=== PATIENT | male | born 1945 | race Caucasian/White ===

== ENCOUNTER 2023-05-28 15:40 | Outpatient (AMB) | payer MEDICARE, OTHER, SELFPAY ==
--- NOTE | 2023-05-28 15:35 | MHC.OFFWIV ---
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 He reports that he recently returned from [place] and on a cruise. Was not wearing his mask both stuff that time. He states that the coughing started yesterday there is some associated shortness of breath. He is concerned that it is triggering his asthma. He has tried to use his albuterol inhaler but is not sure how often to use it. Denies fever chills nausea vomiting chest pain. Review of Systems Card Denies rapid heart rate, Denies dyspnea and Denies dyspnea on exertion Resp Denies dyspnea and Denies dyspnea on exertion GI Denies dyspepsia and Denies heartburn Musc Denies arthralgias and Denies muscle cramps Neuro Denies focal weakness and Denies Other visual disturbances Physical Exam Vital Signs: Last Vital Signs Temp 96.7 F L 05/28/23 15:44 Pulse 68 05/28/23 15:44 BP 110/68 05/28/23 15:44 Pulse Ox 96 05/28/23 15:44 Oxygen Delivery Method Room Air 05/28/23 15:44 BMI result Body Mass Index 45.1 Const General: healthy appearing and no acute distress HEENT Mouth: Normal oral and palatal mucosa present Resp Effort & Inspection: normal respiratory effort and able to speak in complete sentences Auscultation: clear to auscultation bilaterally Cardio Rate: regular rate Rhythm: regular rhythm Assessment & Plan Assessment & Plan (1) URI (upper respiratory infection): Code(s): J06.9 - Acute upper respiratory infection, unspecified Plan Patient speaking in clear full sentences well appearing no acute distress. We discussed at length pros and cons of starting prednisone in conjunction with his albuterol that he has at home. He would like to wait couple of days before initiating course of prednisone and see if his symptoms improve with supportive care, albuterol and Tessalon Perles alone. I think this is reasonable. Since I am unable to print a script and handed to him for later use will have to send both prescriptions to pharmacy. Discussed this with patient. 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 Recommend return to clinic if symptoms are worsening Medications: New benzonatate 100 mg PO TID 5 days PRN 20 caps 0RF cough prednisone Take 4 tabs p.o. daily x 5 days 10 mg PO DAILY 20 tabs 0RF J06.9 - Acute upper respiratory infection, unspecified Coding Level of Care Code Est Pt Level 3 (20252) Diagnoses URI (upper respiratory infection) J06.9
[2023-05-28 15:44] VITALS: BP 110/68; PULSE 68; TEMP 35.9; O2SAT 96; BMI 45.1
== END 2023-05-28 16:04 | disposition home or self-care (01) ==
PROVIDERS: Visit Provider Emergency Medicine
DX: J06.9 Acute upper respiratory infection, unspecified (principal)
CPT/HCPCS: 99213

== ENCOUNTER 2023-10-17 07:32 | Outpatient (AMB) | payer MEDICARE, OTHER, SELFPAY ==
--- NOTE | 2023-10-17 07:42 | A.OFFPC_ITS ---
Vital Signs 10/17/23 07:43 Height 5 ft 5 in Weight 270 lb BMI 44.9 BP 130/64 Blood Pressure Location Lt brachial Position Sitting Pulse 64 Pulse Source Pulse Oximeter Pulse Oximetry (%) 95 Oxygen Delivery Method Room Air Intake Visit Reasons: NPV/ requesting phy Allergies aspirin Adverse Reaction (Verified 10/17/23 07:46) bleeding Penicillins Adverse Reaction (Verified 10/17/23 07:46) hives plavix Adverse Reaction (Uncoded 10/17/23 07:46) rash Medication List - Last Reconciled 10/17/23 by Layla Yu MD atorvastatin 40 mg PO DAILY mqmontkapwc-rpgsvrbvc-ycbzgqrr 200-62.5-25 mcg (Trelegy Ellipta) 1 ea inhalation DAILY lisinopril 2.5 mg PO DAILY montelukast 10 mg PO DAILY nadolol 20 mg PO DAILY omeprazole 20 mg PO DAILY Tobacco use date assessed: 10/17/23 Fall risk assessment: No Falls in past year Last assessed Fall Risk: 10/17/23 Dental Screening Dental Screen Date: 10/17/23 Did you have a dental visit in the last 12 months?: Yes Did you have a dental problem in the last 6 months where you did not have access to dental care?: No Was dental information given to patient?: Patient has dentist HPI NPV/ requesting phy HPI Details 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 PMH includes CAD, asthma, hyperlipid, stable on meds. 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 1. Little interest or pleasure in doing things: not at all 2. Feeling down, depressed, or hopeless: not at all 3. Trouble falling or staying asleep, or sleeping too much: not at all 4. Feeling tired or having little energy: not at all 5. Poor appetite or overeating: not at all 6. Feeling bad about yourself - or that you are a failure or have let yourself or your family down: not at all 7. Trouble concentrating on things, such as reading the newspaper or watching television: not at all 8. Moving or speaking so slowly that other people could have noticed. Or the opposite - being so fidgety or restless that you have been moving around a lot more than usual: not at all 9. Thoughts that you would be better off or of hurting yourself in some way: not at all Total score: 0 Depression Screening Interpretation: Negative Depression Screening Done: Yes Source: Developed by Drs. Kenyon Hebert, Stephanie Junior, Jeff Martínez and colleagues, with an educational jacobo from [employer]. Thrive Questionnaire Date Thrive assessed: 10/17/23 I am a: Patient What is your living situation today?: I have a steady place to live Within the past 12 months, did the food you bought not last and you didn't have the money to get more?: Never true Within the past 12 months, did you worry whether your food would run out before you got money to buy more?: Never true Do you have trouble paying for medicines?: No Do you have trouble getting transportation to medical appointments?: No Do you have trouble paying your heating and electricity bill?: No Do you have trouble taking care of your child, family member or friend?: No Do you have trouble with day-to-day activities such as bathing, preparing meals, shopping, managing finances, etc.?: No Are you currently unemployed and looking for a job?: No Are you interested in more education?: No Please select the resources that you would like help with: None THRIVE Score: 0 AUDIT C Alcohol Use Questionnaire (AUDIT-C) 1. How often do you have a drink containing alcohol?: Monthly or less 2. How many drinks containing alcohol do you have on a typical day when you are drinking?: 1 or 2 3. How often do you have six or more drinks on one occasion?: Never Total Score: 1 MIKE-7 AMB Questionnaire MIKE-7 Date MIKE - 7 assessed: 10/17/23 Feeling nervous, anxious, or on edge: 0 = Not at all Not being able to stop or control worryin = Not at all Worrying too much about different things: 0 = Not at all Trouble relaxin = Not at all Being so restless that it is hard to sit still: 0 = Not at all Becoming easily annoyed or irritable: 0 = Not at all Feeling afraid as if something awful might happen: 0 = Not at all Total MIKE-7 score (0-4 normal; 5-9 mild; 10-14 moderate; 15-21 severe): 0 Source: Developed by Drs. Kenyon Hebert, Stephanie Junior, Jeff Martínez and colleagues, with an educational jacobo from [employer]. Review of Systems Const All systems reviewed & are unremarkable except as noted in HPI and below Reports no additional complaints Eyes Reports no additional complaints ENT Reports no additional complaints Card Reports no additional complaints Resp Reports no additional complaints GI Reports no additional complaints Physical exam (Primary Care) Vital Signs: Last Vital Signs Pulse 64 10/17/23 07:43 BP 130/64 10/17/23 07:43 Pulse Ox 95 10/17/23 07:43 Oxygen Delivery Method Room Air 10/17/23 07:43 BMI result Body Mass Index 44.9 Tobacco/Smoking Status: Tobacco use Status Tobacco use date assessed 10/17/23 10/17/23 07:52 e-Cigarette/Vaping Use Never Used 10/17/23 08:17 PHQ-9: PHQ-9 Score PHQ-9: Total score 0 10/17/23 12:10 Depression Screening Interpretation: Negative Thrive Assessment: Date of Thrive Assessment Date Thrive assessed 10/17/23 10/17/23 08:50 Const General: no acute distress HENMT Head: Yes normal to inspection Ears: hearing grossly normal bilaterally General nose exam: Normal external nose present Throat: Yes posterior oropharynx normal Eyes General: appearance normal, both eyes and all related structures Neck Neck: Yes no lymphadenopathy and Yes supple Resp Effort & Inspection: normal respiratory effort Auscultation: clear to auscultation bilaterally Cardio Rhythm: regular rhythm Heart sounds: S1 normal heart sound present and S2 normal heart sound present GI Inspection: Yes normal to inspection Palpation (GI): Soft to palpation Percussion: Yes normal to percussion Auscultation: normal bowel sounds Assessment and Plan Assessment & Plan (1) CAD (coronary artery disease): Comment: 2009 DEV to 90% LAD, Dr. 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 08/2023 Code(s): J45.909 - Unspecified asthma, uncomplicated Plan: Patient has been on Trelegy and montelukast and follows up with physical metallurgist (3) Hyperlipidemia: Code(s): E78.5 - Hyperlipidemia, unspecified Plan: Continue atorvastatin (4) Obesity: Code(s): E66.9 - Obesity, unspecified Plan: Increase physical activity decrease caloric intake and weight loss discussed with the patient, follow-up in 3 months with a fasting labs before (5) Status post right hip replacement: Code(s): Z96.641 - Presence of right artificial hip joint (6) S/P knee replacement: Comment: Left 2012, R 2020, Dr. Hamilton Code(s): Z96.659 - Presence of unspecified artificial knee joint (7) Hx of colonoscopy: Comment: 2021 for rectal bleeding , hemorrhoid, Dr. MELTON Code(s): Z98.890 - Other specified postprocedural states (8) NGUYỄN (obstructive sleep apnea): Comment: on cpap Code(s): G47.33 - Obstructive sleep apnea (adult) (pediatric) Orders: Orders Complete Blood Count Auto Diff Today E66.9 - Obesity, unspecified, E78.5 - Hyperlipidemia, unspecified, I25.10 - Atherosclerotic heart disease of [place] coronary artery without angina pectoris, J45.909 - Unspecified asthma, uncomplicated PSA,Total (Free>4and<10) Today E66.9 - Obesity, unspecified, E78.5 - Hyperlipidemia, unspecified, I25.10 - Atherosclerotic heart disease of [place] coronary artery without angina pectoris, J45.909 - Unspecified asthma, uncomplicated UA w Microscopic Today E66.9 - Obesity, unspecified, E78.5 - Hyperlipidemia, unspecified, I25.10 - Atherosclerotic heart disease of [place] coronary artery without angina pectoris, J45.909 - Unspecified asthma, uncomplicated Comprehensive [employer]. Panel Fast Today E66.9 - Obesity, unspecified, E78.5 - H yperlipidemia, unspecified, I25.10 - Atherosclerotic heart disease of [place] coronary artery without angina pectoris, J45.909 - Unspecified asthma, uncomplicated Lipid Panel Today E66.9 - Obesity, unspecified, E78.5 - Hyperlipidemia, unspecified, I25.10 - Atherosclerotic heart disease of [place] coronary artery without angina pectoris, J45.909 - Unspecified asthma, uncomplicated Coding Level of Care Code New Pt Prev Care >65yr (57867) Diagnoses CAD (coronary artery disease) I25.10 Asthma J45.909 Hyperlipidemia E78.5 Obesity E66.9 Status post right hip replacement Z96.641 S/P knee replacement Z96.659 Hx of colonoscopy Z98.890 NGUYỄN (obstructive sleep apnea) G47.33
[2023-10-17 07:43] VITALS: BP 130/64; PULSE 64; O2SAT 95; BMI 44.9
== END 2023-10-17 15:25 | disposition home or self-care (01) ==
PROVIDERS: Visit Provider Internal Medicine
DX: Z00.00 Encounter for general adult medical examination without abnormal findings (principal); I25.10 Atherosclerotic heart disease of native coronary artery without angina pectoris; Z68.41 Body mass index [BMI] 40.0-44.9, adult; E66.9 Obesity, unspecified; J45.909 Unspecified asthma, uncomplicated; E78.5 Hyperlipidemia, unspecified; Z96.641 Presence of right artificial hip joint; Z96.659 Presence of unspecified artificial knee joint; Z98.890 Other specified postprocedural states; G47.33 Obstructive sleep apnea (adult) (pediatric)
CPT/HCPCS: 99397

== ENCOUNTER 2023-10-18 08:22 | Outpatient (REF) | payer MEDICARE, OTHER, SELFPAY ==
[2023-10-18 10:20] LABS: MANUAL DIFF FLAG NO
[2023-10-18 10:37] LABS: Alanine Aminotransferase 16 U/L (0-40); Alkaline Phosphatase 101 U/L (39-117); Anion Gap 10 (12-20); Aspartate Amino Transferase 17 U/L (5-37); Bilirubin Total 0.7 mg/dL (0.0-1.0); Blood Urea Nitrogen 22 mg/dL (9-16); Calcium 9.5 mg/dL (8.4-10.2); Carbon Dioxide 31 mmol/L (22-29); Chloride 108 mmol/L (96-108); Cholesterol 122 mg/dL (<200); Estimated Glomerular Filt Rate > 60; Glucose Fasting 105 mg/dL (60-99); HDL Cholesterol 42 mg/dL (>40); LDL Cholesterol Calculated 67 mg/dL (<100); Sodium 144 mmol/L (135-145); Total Protein 6.7 g/dL (6.5-8.0); Triglycerides 68 mg/dL (<150)
[2023-10-18 10:38] LABS: Appearance Urine Clear; Color Urine Yellow; Glucose Urine UA Negative (Negative); Leukocyte Esterase Urine Negative (Negative); Nitrite Urine Negative (Negative); PH 5.5 (5.0-9.0); Specific Gravity - Urine 1.025 (1.005-1.025); Urine Blood Negative (Negative); Urine Ketones Negative (Negative); Urine Protein Negative (Neg-Trace)
[2023-10-18 10:38] LABS: Eosinophils Absolute Auto 0.1 X10*3/uL (0.0-0.4); Hemoglobin 13.9 g/dl (14.0-18.0); Monocytes Absolute Auto 0.7 X10*3/uL (0.1-1.2); Red Cell Distribution Width 14.3 % (11.0-16.0)
[2023-10-18 10:56] LABS: PSA,Total (Free>4and<10) 0.45 ng/mL (0.00-4.00)
[2023-10-18 11:00] LABS: Bacteria Urine None Seen (None Seen); Hyaline Casts Urine 0-2 /LPF (0-2); RBC Urine 0-2 /HPF (0-2); Squamous Epithelial Cell Urine 0-2 /HPF (0-2); WBC Urine 0-5 /HPF (0-5)
[2023-10-18 11:32] LABS: Basophils Percent Auto 0.5 % (0-2); Eosinophils Percent Auto 1.8 % (0-4); Hematocrit 43.2 % (42.0-52.0); Imm Gran Abs Auto 0.05 X10*3/uL (0.00-0.03); Imm Gran Pct Auto 0.7 % (0.0-0.4); Lymphocytes Absolute Auto 1.4 X10*3/uL (1.2-4.9); Lymphocytes Percent Auto 18.8 % (20-40); Mean Corpuscular HGB Conc 32.2 g/dl (31.0-36.0); Mean Corpuscular Hemoglobin 29.2 pg (27.0-33.0); Mean Corpuscular Volume 90.8 fL (80.0-98.0); Mean Platelet Volume 12.5 fL (9.4-12.4); Monocytes Percent Auto 8.8 % (2-11); Neutrophils Absolute Auto 5.1 x10*3/uL (2.0-8.3); Neutrophils Percent Auto 69.4 % (45-73); Red Blood Count 4.76 X10*6/uL (4.60-5.80); White Blood Count 7.4 X10*3/uL (4.8-10.8)
[2023-10-18 11:34] LABS: Platelet Count 140 X10*3/uL (160-400)
== END 2023-10-18 08:23 | disposition home or self-care (01) ==
LOC: HO.HMGCLDS 08:22
PROVIDERS: PCP Internal Medicine; Visit Provider Internal Medicine
DX: Z12.5 Encounter for screening for malignant neoplasm of prostate (principal); I25.10 Atherosclerotic heart disease of native coronary artery without angina pectoris; E78.5 Hyperlipidemia, unspecified; J45.909 Unspecified asthma, uncomplicated; E66.9 Obesity, unspecified
CPT/HCPCS: 36415; 80053; 80061; 81001; 84153; 85025

== ENCOUNTER 2024-01-18 10:04 | Outpatient (AMB) | payer MEDICARE, OTHER, SELFPAY ==
[2024-01-18 10:19] VITALS: BP 120/66; PULSE 63; O2SAT 95; BMI 45.6
--- NOTE | 2024-01-18 10:19 | A.OFFPC_ITS ---
Vital Signs 01/18/24 10:19 Height 5 ft 5 in Weight 274 lb BMI 45.6 BP 120/66 Blood Pressure Location Lt brachial Position Sitting Pulse 63 Pulse Source Pulse Oximeter Pulse Oximetry (%) 95 Oxygen Delivery Method Room Air Intake Visit Reasons: 3 month follow up Intake Note: Pt is here today for 3 months follow up visit. Allergies aspirin Adverse Reaction (Verified 01/18/24 10:20) bleeding Penicillins Adverse Reaction (Verified 01/18/24 10:20) hives plavix Adverse Reaction (Uncoded 01/18/24 10:20) rash Medication List - Last Reconciled 01/18/24 by Layla Yu MD atorvastatin 40 mg PO DAILY aglbaapaalp-rxyxpvdtm-cxnukeur 200-62.5-25 mcg (Trelegy Ellipta) 1 ea inhalation DAILY lisinopril 2.5 mg PO DAILY montelukast 10 mg PO DAILY nadolol 20 mg PO DAILY omeprazole 20 mg PO DAILY Tobacco use date assessed: 01/18/24 Fall risk assessment: 1 Fall in past year Last assessed Fall Risk: 01/18/24 Dental Screening Dental Screen Date: 01/18/24 Did you have a dental visit in the last 12 months?: Yes Did you have a dental problem in the last 6 months where you did not have access to dental care?: No Was dental information given to patient?: Patient has dentist HPI 3 month follow up HPI Details Pt presents for HTN, asthma, GERD, stable on meds. 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 1. Little interest or pleasure in doing things: not at all 2. Feeling down, depressed, or hopeless: not at all 3. Trouble falling or staying asleep, or sleeping too much: not at all 4. Feeling tired or having little energy: not at all 5. Poor appetite or overeating: not at all 6. Feeling bad about yourself - or that you are a failure or have let yourself or your family down: not at all 7. Trouble concentrating on things, such as reading the newspaper or watching television: not at all 8. Moving or speaking so slowly that other people could have noticed. Or the opposite - being so fidgety or restless that you have been moving around a lot more than usual: not at all 9. Thoughts that you would be better off or of hurting yourself in some way: not at all Total score: 0 Depression Screening Interpretation: Negative Depression Screening Done: Yes Source: Developed by Drs. Kenyon Hebert, Stephanie Junior, Jeff Martínez and colleagues, with an educational jacobo from [employer]. Thrive Questionnaire Date Thrive assessed: 01/18/24 I am a: Patient What is your living situation today?: I have a steady place to live Within the past 12 months, did the food you bought not last and you didn't have the money to get more?: Never true Within the past 12 months, did you worry whether your food would run out before you got money to buy more?: Never true Do you have trouble paying for medicines?: No Do you have trouble getting transportation to medical appointments?: No Do you have trouble paying your heating and electricity bill?: No Do you have trouble taking care of your child, family member or friend?: No Do you have trouble with day-to-day activities such as bathing, preparing meals, shopping, managing finances, etc.?: No Are you currently unemployed and looking for a job?: No Are you interested in more education?: Yes Please select the resources that you would like help with: Housing/Longterm Currently or been in a relationship where the following occur: No concerns reported THRIVE Score: 0 AUDIT C Alcohol Use Questionnaire (AUDIT-C) 1. How often do you have a drink containing alcohol?: 2-4 times a month 2. How many drinks containing alcohol do you have on a typical day when you are drinking?: 1 or 2 3. How often do you have six or more drinks on one occasion?: Never Total Score: 2 MIKE-7 AMB Questionnaire MIKE-7 Date MIKE - 7 assessed: 01/18/24 Feeling nervous, anxious, or on edge: 0 = Not at all Not being able to stop or control worryin = Not at all Worrying too much about different things: 0 = Not at all Trouble relaxin = Not at all Being so restless that it is hard to sit still: 0 = Not at all Becoming easily annoyed or irritable: 0 = Not at all Feeling afraid as if something awful might happen: 0 = Not at all Total MIKE-7 score (0-4 normal; 5-9 mild; 10-14 moderate; 15-21 severe): 0 Source: Developed by Drs. Kenyon Hebert, Stephanie Junior, Jeff Martínez and colleagues, with an educational jacobo from [employer]. Review of Systems Const All systems reviewed & are unremarkable except as noted in HPI and below Reports no additional complaints Eyes Reports no additional complaints ENT Reports no additional complaints Card Reports no additional complaints Resp Reports no additional complaints GI Reports no additional complaints Reports no additional complaints Physical exam (Primary Care) Vital Signs: Last Vital Signs Pulse 63 01/18/24 10:19 BP 120/66 01/18/24 10:19 Pulse Ox 95 01/18/24 10:19 Oxygen Delivery Method Room Air 01/18/24 10:19 BMI result Body Mass Index 45.6 Tobacco/Smoking Status: Tobacco use Status Tobacco use date assessed 01/18/24 01/18/24 10:20 Patient Tobacco Use Status Never used Tobacco 01/18/24 10:31 e-Cigarette/Vaping Use Never Used 01/18/24 10:19 PHQ-9: PHQ-9 Score PHQ-9: Total score 0 01/18/24 10:20 Depression Screening Interpretation: Negative Thrive Assessment: Date of Thrive Assessment Date Thrive assessed 01/18/24 01/18/24 10:20 Currently or been in a relationship where the following occur: No concerns reported Const General: no acute distress HENMT Head: Yes normal to inspection Face and sinus: Yes normal facial exam Throat: Yes posterior oropharynx normal Eyes General: appearance normal, both eyes and all related structures Neck Neck: Yes supple Resp Effort & Inspection: normal respiratory effort Auscultation: clear to auscultation bilaterally Cardio Rhythm: regular rhythm Heart sounds: S1 normal heart sound present and S2 normal heart sound present GI Inspection: Yes normal to inspection Palpation (GI): Soft to palpation Percussion: Yes normal to percussion Auscultation: normal bowel sounds Assessment and Plan Assessment & Plan (1) NGUYỄN (obstructive sleep apnea): Comment: on cpap Code(s): G47.33 - Obstructive sleep apnea (adult) (pediatric) Plan: Continue CPAP (2) Obesity: Code(s): E66.9 - Obesity, unspecified Plan: Increase physical activity decrease caloric intake weight loss discussed with the patient follow-up in 6 months with a fasting labs before (3) Hyperlipidemia: Code(s): E78.5 - Hyperlipidemia, unspecified Plan: Continue statin and low-cholesterol diet (4) Asthma: 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 Panel Fast 6 Months E66.9 - Obesity, unspecified, I25.10 - Atherosclerotic heart disease of [place] coronary artery without angina pectoris, J45.909 - Unspecified asthma, uncomplicated Lipid Panel 6 Months E66.9 - Obesity, unspecified, I25.10 - Atherosclerotic heart disease of [place] coronary artery without angina pectoris, J45.909 - Unspecified asthma, uncomplicated Coding Level of Care Code Est Pt Level 4 (26657) Diagnoses NGUYỄN (obstructive sleep apnea) G47.33 Obesity E66.9 Hyperlipidemia E78.5 Asthma J45.909
== END 2024-01-18 10:44 | disposition home or self-care (01) ==
PROVIDERS: Visit Provider Internal Medicine
DX: G47.33 Obstructive sleep apnea (adult) (pediatric) (principal); E66.9 Obesity, unspecified; Z68.42 Body mass index [BMI] 45.0-49.9, adult; E78.5 Hyperlipidemia, unspecified; J45.909 Unspecified asthma, uncomplicated
CPT/HCPCS: 99214

== ENCOUNTER 2025-01-07 12:58 | Outpatient (AMB) | payer MEDICARE, OTHER, SELFPAY ==
[2025-01-07 13:13] VITALS: BP 120/62; PULSE 66; RESP 20; TEMP 36.8; O2SAT 95; BMI 44.3
--- NOTE | 2025-01-07 13:13 | MHC.PC.OV ---
Vital Signs 01/07/25 13:13 Height 5 ft 5 in Weight 266 lb BMI 44.3 BP 120/62 Blood Pressure Location Lt brachial Position Sitting Respiration 20 Pulse 66 Pulse Source Pulse Oximeter Temp 98.3 F Temp Source Oral Pulse Oximetry (%) 95 Oxygen Delivery Method Room Air Intake Visit Reasons: PE Intake Note: Pt is here today for PE. Allergies aspirin Adverse Reaction (Verified 01/07/25 13:15) bleeding Penicillins Adverse Reaction (Verified 01/07/25 13:15) hives plavix Adverse Reaction (Uncoded 01/07/25 13:15) rash Medication List - Last Reconciled 01/07/25 by Layla Yu MD atorvastatin 40 mg PO DAILY dksgpgkxqik-fbkcjuhkz-kjfhflvq 200-62.5-25 mcg (Trelegy Ellipta) 1 ea inhalation DAILY lisinopril 2.5 mg PO DAILY montelukast 10 mg PO DAILY nadolol 20 mg PO DAILY omeprazole 20 mg PO DAILY Tobacco use date assessed: 01/07/25 Fall risk assessment: No Falls in past year Last assessed Fall Risk: 01/07/25 Dental Screening Dental Screen Date: 01/07/25 Did you have a dental visit in the last 12 months?: Yes Did you have a dental problem in the last 6 months where you did not have access to dental care?: No Was dental information given to patient?: Patient has dentist HPI PE HPI Details Pt presents for PE. 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 1. Little interest or pleasure in doing things: not at all 2. Feeling down, depressed, or hopeless: not at all 3. Trouble falling or staying asleep, or sleeping too much: not at all 4. Feeling tired or having little energy: not at all 5. Poor appetite or overeating: not at all 6. Feeling bad about yourself - or that you are a failure or have let yourself or your family down: not at all 7. Trouble concentrating on things, such as reading the newspaper or watching television: not at all 8. Moving or speaking so slowly that other people could have noticed. Or the opposite - being so fidgety or restless that you have been moving around a lot more than usual: not at all 9. Thoughts that you would be better off or of hurting yourself in some way: not at all Total score: 0 Depression Screening Interpretation: Negative Depression Screening Done: Yes 55211 - PHQ-9 Billing: Yes Source: Developed by Drs. Kenyon Hebert, Stephanie Junior, Jeff Martínez and colleagues, with an educational jacobo from [employer]. Thrive Questionnaire Date Thrive assessed: 01/07/25 I am a: Patient What is your living situation today?: I have a steady place to live Within the past 12 months, did the food you bought not last and you didn't have the money to get more?: Never true Within the past 12 months, did you worry whether your food would run out before you got money to buy more?: Never true Do you have trouble paying for medicines?: No Do you have trouble getting transportation to medical appointments?: No Do you have trouble paying your heating and electricity bill?: No Do you have trouble taking care of your child, family member or friend?: No Do you have trouble with day-to-day activities such as bathing, preparing meals, shopping, managing finances, etc.?: No Are you currently unemployed and looking for a job?: No Are you interested in more education?: No Please select the resources that you would like help with: None Currently or been in a relationship where the following occur: No concerns reported THRIVE Score: 0 AUDIT C Alcohol Use Questionnaire (AUDIT-C) 1. How often do you have a drink containing alcohol?: Monthly or less 2. How many drinks containing alcohol do you have on a typical day when you are drinking?: 1 or 2 3. How often do you have six or more drinks on one occasion?: Never Total Score: 1 MIKE-7 AMB Questionnaire MIKE-7 Date MIKE - 7 assessed: 01/07/25 Feeling nervous, anxious, or on edge: 0 = Not at all Not being able to stop or control worryin = Not at all Worrying too much about different things: 0 = Not at all Trouble relaxin = Not at all Being so restless that it is hard to sit still: 0 = Not at all Becoming easily annoyed or irritable: 0 = Not at all Feeling afraid as if something awful might happen: 0 = Not at all Total MIKE-7 score (0-4 normal; 5-9 mild; 10-14 moderate; 15-21 severe): 0 Source: Developed by Drs. Kenyon Hebert, Stephanie Junior, Jeff Martínez and colleagues, with an educational jacobo from [employer]. MIKE-7 Assessment Billing MIKE-7 Assessment Tool: MIKE-7 Assessment 45296 Review of Systems Const All systems reviewed & are unremarkable except as noted in HPI and below Eyes Reports no additional complaints ENT Reports no additional complaints Card Reports no additional complaints Resp Reports no additional complaints GI Reports no additional complaints Reports no additional complaints Physical exam (Primary Care) Vital Signs: Last Vital Signs Temp 98.3 F 01/07/25 13:13 Pulse 66 01/07/25 13:13 Resp 20 01/07/25 13:13 BP 120/62 01/07/25 13:13 Pulse Ox 95 01/07/25 13:13 Oxygen Delivery Method Room Air 01/07/25 13:13 BMI result Body Mass Index 44.3 Tobacco/Smoking Status: Tobacco use Status Tobacco use date assessed 01/07/25 01/07/25 13:18 Patient Tobacco Use Status Never used Tobacco 01/07/25 13:18 e-Cigarette/Vaping Use Never Used 01/07/25 13:18 PHQ-9: PHQ-9 Score PHQ-9: Total score 0 01/07/25 13:57 Depression Screening Interpretation: Negative Thrive Assessment: Date of Thrive Assessment Date Thrive assessed 01/07/25 01/07/25 13:26 Currently or been in a relationship where the following occur: No concerns reported Const General: no acute distress HENMT Head: Yes normal to inspection Ears: hearing grossly normal bilaterally Face and sinus: Yes normal facial exam Mouth: Normal oral and palatal mucosa present Eyes General: appearance normal, both eyes and all related structures Neck Neck: Yes no lymphadenopathy and Yes supple Resp Effort & Inspection: normal respiratory effort Auscultation: clear to auscultation bilaterally Cardio Rhythm: regular rhythm Heart sounds: S1 normal heart sound present and S2 normal heart sound present GI Inspection: Yes normal to inspection Palpation (GI): Soft to palpation Percussion: Yes normal to percussion Auscultation: normal bowel sounds Immunizations pneumoc 20-tierney conj-dip cr(PF) 0.5 mL IM syringe Performing Provider: Layla Yu MD Performing Location: [facility] Administered by: AKILAH Juan on 01/07/25 13:56 Dose Route Admin Location Dispensed Lot Number Expiration Date [facility] Retirement Assistant 0.5 mL IM Left Deltoid 0.5 mL [id number] 12/29/25 0532-8455-23 [employer] Total Dispensed Waste 0.5 mL 0 % VIS Given Date VIS Provided VIS Publication Date 01/07/25 Single Vaccine 24 Eligibility Eligibility Date Funding Source Not [facility] Eligible 01/07/25 Private Coding Level of Care Code Est Pt Prev Care >65y(77465) Diagnoses Asthma J45.909 Hyperlipidemia E78.5 CAD (coronary artery disease) I25.10 NGUYỄN (obstructive sleep apnea) G47.33 Obesity E66.9 Additional Codes MIKE-7 Assessment Billing - MIKE-7 Assessment Tool: MIKE-7 Assessment 66602 ([id number]) PHQ-9 - 54719 - PHQ-9 Billing: Yes ([id number]) Assessment & Plan Assessment & Plan (1) Asthma: Comment: f/u senior operations analyst , , spirometry 08/2023 Code(s): J45.909 - Unspecified asthma, uncomplicated Category: Medical Plan: Controlled on Trelegy and montelukast follow-up with senior operations analyst (2) Hyperlipidemia: Code(s): E78.5 - Hyperlipidemia, unspecified Category: Medical Plan: Continue statin, patient will return for fasting blood work (3) CAD (coronary artery disease): Comment: 2009 DEV to 90% LAD, Dr. Candelaria Echo nl EF Code(s): I25.10 - Atherosclerotic heart disease of [place] coronary artery without angina pectoris Category: Medical Plan: Continue beta denise and lisinopril follow-up with Cardiology (4) NGUYỄN (obstructive sleep apnea): Comment: on cpap Code(s): G47.33 - Obstructive sleep apnea (adult) (pediatric) Category: Medical Plan: Continue Cpap (5) Obesity: Code(s): E66.9 - Obesity, unspecified Category: Medical Plan: Increase physical activity decreasing caloric intake and weight loss discussed with the patient Orders: Orders Comprehensive [place]. Panel Fast Today E78.5 - Hyperlipidemia, unspecified, I25.10 - Atherosclerotic heart disease of [place] coronary artery without angina pectoris, J45.909 - Unspecified asthma, uncomplicated Complete Blood Count Auto Diff Today E78.5 - Hyperlipidemia, unspecified, I25.10 - Atherosclerotic heart disease of [place] coronary artery without angina pectoris, J45.909 - Unspecified asthma, uncomplicated Lipid Panel Today E78.5 - Hyperlipidemia, unspecified, I25.10 - Atherosclerotic heart disease of [place] coronary artery without angina pectoris, J45.909 - Unspecified asthma, uncomplicated Pneumococcal 20 Immunization Today Z23 - Encounter for immunization
--- OUTSIDE RECORDS SUMMARY | 2025-01-07 13:48 | XMS_ITS | Data Portability ---
Author Organization [place] - [facility], Allergy Address [address] [place] [phone] Care Team Providers Care Certified Vehicle Fire Investigator Name Role Phone KAYA CONSTANTINO Primary Care Provider Assessment Encounter Date Assessment Date Assessment LastModified by Organization Details LastModified Time 03/10/2024 03/10/2024 Patient presents for cerumen removal. Cerumen removed bilaterally without difficulty. Follow up as scheduled for repeat procedure. [place] Not available 03/10/2024 11:51:08 10/10/2024 10/10/2024 79-year-old male presents for cerumen removal. Cerumen removed bilaterally. TMs normal to inspection. Follow-up in 6 months. [email or web address] Not available 10/10/2024 11:51:21 Plan of Treatment Reminders Order Date Submit Date Provider Last Modified By Organization Details Last Modified Time Details Appointments Establish ed 15 2024 09:30A M SAADIA SOUSA PA-C Not available Not available Not available Lab None recorded. Referral None recorded. Procedures None recorded. Surgeries None recorded. Imaging None recorded. Medication Orders None recorded. Patient TargetsNo targets recorded. Patient InstructionsNo instructions recorded. Reason for Referral None Reported. Results Created Date Observation Date Name Description Value Unit Range Abnormal Flag Note LastModifiedBy Organization Detail LastModifiedTime 02/21/20 24 05/03/2023 audio gram No observ ation record ed. [email or web address] Not Available 18:10:27 Result Notes None recorded. 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 41636472856 109 Active 2022 Sensorine ural hearing loss, unilatera l, left ear, with restricte d hearing on the contralat eral side; Note: Date Diagnosed : 05/03/2023 2:31 PM (H90.A22) Not Available [facility] 4 03:14:50 Impacted cerumen of bilateral ears 87070054973 10890 Active 2019 Impacted cerumen, bilateral ; Note: Date Diagnosed : 11/06/2019 2:56 PM (H61.23) Not Available [facility] 4 03:14:49 Otalgia of left ear 5996361115 Active 2021 Otalgia, left ear; Note: Date Diagnosed : 2 11:45 AM (H92.02) Not Available [facility] 4 03:14:50 Disorder of right Eustachia n tube 41883324696 38886 Active 2022 Other specified disorders of Eustachia n tube, right ear; Note: Date Diagnosed : 05/03/2023 2:52 PM (H69.81) Not Available [facility] 4 03:14:49 Impacted cerumen in right ear 73742587849 77573 Active 2019 Impacted cerumen, right ear; Note: Date Diagnosed : 01/12/2020 10:05 AM (H61.21) Not Available [facility] 4 03:14:49 Abnormal auditory perceptio n 33340729 Active 2019 Other abnormal auditory perceptio ns, right ear; Note: Date Diagnosed : 11/06/2019 2:56 PM (H93.291) Other abnormal auditory perceptio ns, right ear; Note: Date Diagnosed : 10/21/2019 1:16 PM (H93.291) ; Start Date : 0 Not Available [facility] 4 03:14:50 Acute serous otitis media of right ear 93973885478 00406 Active 2022 Acute serous otitis media, right ear; Note: Date Diagnosed : 05/03/2023 2:52 PM (H65.01) Not Available [facility] 4 03:14:50 Mixed conductiv e and sensorine ural hearing loss of right ear 16510222058 105 Active 2022 Mixed conductiv e and sensorine ural hearing loss, unilatera l, right ear with restricte d hearing on the contralat eral side; Note: Date Diagnosed : 05/03/2023 2:31 PM (H90.A31) Not Available [facility] 4 03:14:50 Problem Notes None recorded. Procedures Surgical History Date Name Laterality Status Provider Name and Address Organization Details Recorded Time 5 Cerumen removal without microscope bilat completed SAADIA SOUSA PA-C [address] [place] [address],[place] [address], [place], [phone], [facility] 10/10/2024 11:51:09 4 Cerumen removal without microscope bilat completed SAADIA SOUSA PA-C [address] [place] [address],[place] [address], [place], [address], [facility] 03/10/2024 11:51:01 Imaging Results None recorded. Procedure Notes None recorded. Medical Equipment None Reported. Allergies Allergen ID Allergen Name Allergen Category Reaction Reaction Severity Criticality Documentation Date Start Date Code Code System Note Provider Name and Address Organization Details Recorded Time 144228 penicilli n V potassium medicatio n other Not available Not available 11/13/2023 93651 5 RxNorm React ion: unkno wn, unspe cifie d;; Not Available [facility] 4 01:25:11 569204 Plavix medicatio n other Not available Not available 11/13/2023 39329 2 RxNorm React ion: unkno wn, unspe cifie d;; Not Available [facility] 4 01:25:12 Medications Name Sig Start Date Stop Date Status Note LastModified by Organization Details LastModified Time atorvasta tin 40 mg tablet TAKE 1 TABLET BY MOUTH DAILY active Not Available Not Available No t Available prednison e 10 mg tablet TAKE 4 TABLETS BY MOUTH DAILY active Not Available Not Available No t Available azithromy miah 250 mg tablet active Not Available Not Available No t Available prednison e 20 mg tablet TAKE 3 TABLETS BY MOUTH X 3 DAYS THEN 2 TABLETS BY MOUTH X 3 DAYS THEN 1 TABLET BY MOUTH X 3 DAYS active Not Available Not Available No t Available ciproflox acin 250 mg tablet TAKE 1 TABLET BY MOUTH TWICE DAILY FOR 7 DAYS active Not Available Not Available No t Available Ciloxan 0.3 % eye drops 01/09 completed Medicati on ID: [id number] P rescribe d By Name: DANGELO Starks nd Name: Ciloxan Send Method: E-Prescr ibed Sub s Allowed: subs OK Speci al Instruct ion: Instill 4 drops twice a day into affected ear for 10 days Med icationG enericNa me: Ciloxan Not Available Not Available Not Available simvastat in 40 mg tablet 2019 active Medicati on ID: [id number] D uration Value: 90 Brand Name: simvasta tin Send Method: E-Prescr ibed Sub s Allowed: subs OK Speci al Instruct ion: TK 1 T PO QD Medic ationGen ericName : simvasta tin Not Available Not Available Not Available nadolol 20 mg tablet TAKE 1 TABLET BY MOUTH DAILY active Not Available Not Available No t Available terbinafi ne HCl 250 mg tablet 2019 active Medicati on ID: [id number] D uration Value: 90 Brand Name: terbinaf ine HCl Send Method: E-Prescr ibed Sub s Allowed: subs OK Medic ationGen ericName : terbinaf ine HCl Not Available Not Available Not Available ofloxacin 0.3 % ear drops 4 drop twice a day 01/25 completed Medicati on ID: [id number] D uration Value: 14 Prescri bed By Name: DANGELO Starks nd Name: ofloxaci n Send Method: E-Prescr ibed Sub s Allowed: subs OK Medic ationGen ericName : ofloxaci n Not Available Not Available Not Available benzonata te 100 mg capsule TAKE 1 CAPSULE BY MOUTH THREE TIMES DAILY FOR 5 DAYS NEEDED FOR COUGH active Not Available Not Available No t Available omeprazol e 20 mg capsule,d elayed release TAKE 1 CAPSULE BY MOUTH DAILY active Not Available Not Available No t Available monteluka st 10 mg tablet TAKE 1 TABLET BY MOUTH BEFORE BEDTIME active Not Available Not Available No t Available Aspir-81 mg tablet,de layed release 2019 active Medicati on ID: [id number] B rand Name: Aspir-81 Send Method: E-Prescr ibed Sub s Allowed: subs OK Medic ationGen ericName : Aspir-81 Not Available Not Available Not Available cefdinir 300 mg capsule TAKE ONE CAPSULE BY MOUTH TWICE DAILY active Not Available Not Available No t Available lisinopri l 2.5 mg tablet TAKE 1 TABLET BY MOUTH DAILY active Not Available Not Available No t Available loratadin e 10 mg tablet 1 tablet by mouth 2019 active Medicati on ID: [id number] D uration Value: 30 Brand Name: loratadi ne Send Method: E-Prescr ibed Sub s Allowed: subs OK Medic ationGen ericName : loratadi ne Not Available Not Available Not Available Breo Ellipta 200 mcg-25 mcg/dose powder for inhalatio n 2019 active Medicati on ID: [id number] D uration Value: 90 Brand Name: Breo Ellipta Send Method: E-Prescr ibed Sub s Allowed: subs OK Speci al Instruct ion: INL 1 PUFF PO ONCE D Medica tionGene ricName: Breo Ellipta Not Available Not Available Not Available Trelegy Ellipta 200 mcg-62.5 mcg-25 mcg powder for inhalatio n INHALE 1 PUFF BY MOUTH DAILY IN THE MORNING active Not Available Not Available No t Available Airsupra 90 mcg-80 mcg/actua tion HFA aerosol inhaler INHALE 2 PUFFS NEEDED FOR COUGH. NO MORE THAN 12 PUFFS A DAY active Not Available Not Available No t Available Vitals Date Recorded Body height Body mass index (BMI) Body weight Provider Name and Address Organization Details Last Updated DateTime 10/10/2024 166.37 cm 41 kg/m2 982277.09 g Noemi Henderson [facility] 10/10/2024 11:22:10 Date Recorded Body height Body mass index (BMI) Body weight Provider Name and Address Organization Details Last Updated DateTime 03/10/2024 166.37 cm 41 kg/m2 257767.09 g Yin Stone [facility] 03/10/2024 10:31:05 Social History None recorded. Functional Status None recorded. Mental Status None recorded. Family History Nothing Reported. Medical History No medical history recorded. Past Encounters Encounter ID Performer Location Encounter Start Date Encounter Closed Date Diagnosis/Indication Diagnosis SNOMED-CT Code Diagnosis ICD10 Code Diagnosis Note [id number] SAADIA SOUSA PA-C [facility] [address] [place] [address] 03/10/2024 10:20:20 03/10/2024 10:44:48 Impacted cerumen of bilateral ears 2036998512 606256 H61.23 [id number] SAADIA SOUSA PA-C [facility] [address] [address] 10/10/2024 11:10:19 10/10/2024 11:36:47 Impacted cerumen of bilateral ears 7291179842 899751 H61.23 Health Concerns Section Related Observation LastModified by Organization Detai ls LastModified Time None Recorded Concern Status LastModified by Organization Details LastModified Time None Recorded Advance Directives Directive None Recorded Payers Insurance Date Sequence Insurance Name Policy Number Policy Tierney Covered Member ID Tierney Member ID Guarantor Name 10/10/2024 1 MEDICARE B-[place]: [employer] Kenyon Morin [id number] Kenyon Morin 10/10/2024 2 [employer] - PLAN 1 (MEDICARE SUPPLEMENT) [id number] Kenyon Morin [id number] Kenyon Morin Notes Date Note Type Note Provider Name and Address Organization Details Recorded Time 03/10/2024 text/html 78 year old male presents for cerumen removal. No acute issues since last visit. RENALDO FRANCIS MD [address] [place] [address], [phone], [place] - [facility] 03/12/2024 07:16:08 10/10/2024 text/html 79-year-old male presents for cerumen removal. No acute issues since his last visit. YUMIKO CHAMPION MD [address] [place] [address], [phone], [place] - [facility] 10/10/2024 16:48:15
--- OUTSIDE RECORDS SUMMARY | 2025-01-07 13:48 | XMS_ITS | Clinical Summary ---
Author Organization [facility] it Address [address] [place] [address] Care Team Providers Care Product Development Scientist Name Role Phone Layla Yu MD Primary Care Provider [phone] Medications nadoloL (CORGARD) 20 mg tablet TAKE 1 TABLET BY MOUTH DAILY 90 tablet 2 4 Active atorvastatin (LIPITOR) 40 mg tablet Take 1 tablet (40 mg total) by mouth 1 (one) time each day. 90 tablet 1 5 Active lisinopriL (PRINIVIL,ZESTR IL) 2.5 mg tablet Take 1 tablet (2.5 mg total) by mouth 1 (one) time each day. 90 tablet 1 5 Active lisinopriL (PRINIVIL,ZESTR IL) 2.5 mg tablet TAKE 1 TABLET BY MOUTH DAILY 90 tablet 1 4 12/27/19 25 Discontinu ed(Reorder ) Encounters Date Type Department Care Team Description 12/26/2024 Telephone [facility] Cardiology [facility] [address] [place] [address] Mike Candelaria MD Med Refill 12/08/2024 Telephone [facility] Cardiology [facility] [address] [place] [address] Mike Candelaria MD Med Refill from Last 3 Months Surgical History Surgery Date Site/Laterality Comments ANGIOPLASTY PROCEDURE: HISTORICAL ANGIOPLASTY W/STENT CARDIAC CATHETERIZATION PROCEDURE: HISTORICAL CARDIAC CATH Medical History Medical History Date Comments Chronic ischemic heart disease D X:Chronic ischemic heart disease Hyperlipidemia DX:Hyperlipidemi a Essential hypertension DX:Essent ial hypertension Family History Medical History Relation Name Comments Coronary artery disease Father No Known Problems Mother Relation Name Status Comments Father Mother Social History Tobacco Use Types Packs/Day Years Used Date Smoking Tobacco: Former Cigarettes Q uit: 07/02/1963 Smokeless Tobacco: Never Alcohol Use Standard Drinks/Week Comments Not Currently 0 (1 standard drink = 0.6 oz pur e alcohol) Sex and Gender Information Value Date Recorded Sex Assigned at Not on file Legal Sex Male 9:46 PM EST Gender Identity Not on file Sexual Orientation Not on file Obstetrics History Last Filed Vital Signs Vital Sign Reading Time Taken Comments Blood Pressure 136/68 03/26/2024 9:28 AM EDT Sitting R Arm Pulse 67 03/26/2024 9:28 AM EDT Temperature - - Respiratory Rate - - Oxygen Saturation - - Inhaled Oxygen Concentration - - Weight 127 kg (279 lb 6.4 oz) 9:28 AM EDT Height 167.6 cm (5' 6 ) 03/26/2024 9:28 AM EDT Body Mass Index 45.1 03/26/2024 9:28 AM EDT Plan of Treatment Health Maintenance Due Date Last Done Comments DTaP,Tdap,and Td Vaccines (1 - Tdap) 1964 Zoster Vaccines (1 of 2) 1994 RSV Immunization Adult Patients (1 - 1-dose 75+ series) 2019 Pneumococcal Vaccine: 50+ Years (2 of 2 - PCV) 04/22/2021 04/22/2020 Cholesterol Screening (Lipid Panel) 06/10/2022 Depression Screening 06/10/2022 Falls Risk Assessment 06/10/2022 Social Influencers of Health Screening 06/10/2022 Hypertension/CHF/CAD Annual BMP Blood Test 06/11/2022 COVID-19 Vaccine ( - season) 2024 Influenza Vaccine (#1) 2025 2, 06/01/2021, 04/16/2020, Additional history exists HIB Vaccines Aged Out No longer eligi ble based on patient's age to complete this topic HPV Vaccines Aged Out No longer eligi ble based on patient's age to complete this topic Hepatitis A Vaccines Aged Out No long er eligible based on patient's age to complete this topic Hepatitis B Vaccines Aged Out No long er eligible based on patient's age to complete this topic IPV Vaccines Aged Out No longer eligi ble based on patient's age to complete this topic MMR Vaccines Aged Out No longer eligi ble based on patient's age to complete this topic Meningococcal ACWY Vaccine Aged Out N o longer eligible based on patient's age to complete this topic Meningococcal B Vaccine Aged Out No l onger eligible based on patient's age to complete this topic RSV Immunization Patients Under 20 months Aged Out No longer eligible based on patient's age to complete this topic Varicella Vaccines Aged Out No longer eligible based on patient's age to complete this topic Care Teams Product Development Scientist Relationship Specialty Start Date End Date Layla Yu MD PCP - General 03/22/23
== END 2025-01-07 14:00 | disposition home or self-care (01) ==
LOC: HO.HMCC 12:58
PROVIDERS: PCP Internal Medicine; Visit Provider Internal Medicine
DX: Z00.00 Encounter for general adult medical examination without abnormal findings (principal); J45.909 Unspecified asthma, uncomplicated; E66.9 Obesity, unspecified; Z68.41 Body mass index [BMI] 40.0-44.9, adult; E78.5 Hyperlipidemia, unspecified; I25.10 Atherosclerotic heart disease of native coronary artery without angina pectoris; G47.33 Obstructive sleep apnea (adult) (pediatric); Z23 Encounter for immunization

== ENCOUNTER → 2025-01-07 12:58 | Outpatient (BNVA) | payer MEDICARE, OTHER, SELFPAY | PROVIDERS: PCP Internal Medicine; Visit Provider Internal Medicine | DX: Z00.00 Encounter for general adult medical examination without abnormal findings (principal); Z23 Encounter for immunization; J45.909 Unspecified asthma, uncomplicated; E78.5 Hyperlipidemia, unspecified; I25.10 Atherosclerotic heart disease of native coronary artery without angina pectoris; G47.33 Obstructive sleep apnea (adult) (pediatric); E66.9 Obesity, unspecified; Z68.41 Body mass index [BMI] 40.0-44.9, adult; Z71.3 Dietary counseling and surveillance | CPT/HCPCS: 90471; 90677; 96127; 99397 ==

== ENCOUNTER 2025-01-08 08:22 | Outpatient (REF) | payer MEDICARE, OTHER, SELFPAY ==
--- OUTSIDE RECORDS SUMMARY | 2025-01-08 08:35 | XMS_ITS | Clinical Summary ---
Author Organization [facility] it Address [address] [place] [address] Care Team Providers Care Cap Jewel Plate Assembler Name Role Phone Layla Yu MD Primary Care Provider [phone] Medications nadoloL (CORGARD) 20 mg tablet TAKE [...] Type Department Care Team Description 12/26/2024 Telephone [facility] Cardiology [facility] [address] [place] [address] Mike Candelaria MD Med Refill 12/08/2024 Telephone [facility] Cardiology [facility] [address] [place] [address] Mike Candelaria MD Med Refill [...] age to complete this topic Care Teams Cap Jewel Plate Assembler Relationship Specialty Start Date End Date Layla Yu MD PCP - General 03/22/23
[2025-01-08 10:38] LABS: MANUAL DIFF FLAG NO
[2025-01-08 10:58] LABS: Hematocrit 41.6 % (42.0-52.0); Hemoglobin 13.5 g/dl (14.0-18.0); Imm Gran Abs Auto 0.07 X10*3/uL (0.00-0.03); Imm Gran Pct Auto 0.8 % (0.0-0.4); Lymphocytes Absolute Auto 1.7 X10*3/uL (1.2-4.9); Mean Corpuscular HGB Conc 32.5 g/dl (31.0-36.0); Mean Corpuscular Hemoglobin 29.2 pg (27.0-33.0); Mean Corpuscular Volume 90.0 fL (80.0-98.0); NRBC Abs Auto 0.000 X10*3/uL (0.0-0.012); NRBC Pct Auto 0.0 /100WBC (0.0-0.2); Platelet Count 145 X10*3/uL (160-400); Red Blood Count 4.62 X10*6/uL (4.60-5.80); White Blood Count 8.4 X10*3/uL (4.8-10.8)
[2025-01-08 11:35] LABS: Alanine Aminotransferase 19 U/L (0-40); Albumin Level 4.1 g/dL (3.5-5.0); Alkaline Phosphatase 105 U/L (39-117); Anion Gap 11 (12-20); Aspartate Amino Transferase 23 U/L (5-37); Blood Urea Nitrogen 22 mg/dL (9-16); Calcium 9.5 mg/dL (8.4-10.2); Carbon Dioxide 30 mmol/L (22-29); Chloride 106 mmol/L (96-108); Cholesterol 119 mg/dL (<200); Estimated Glomerular Filt Rate > 60; HDL Cholesterol 42 mg/dL (>40); Potassium 4.8 mmol/L (3.3-5.1); Sodium 142 mmol/L (135-145); Total Protein 6.5 g/dL (6.5-8.0); Triglycerides 75 mg/dL (<150)
== END 2025-01-08 08:23 | disposition home or self-care (01) ==
LOC: HO.HMGCLDS 08:22
PROVIDERS: PCP Internal Medicine; Visit Provider Internal Medicine
DX: I25.10 Atherosclerotic heart disease of native coronary artery without angina pectoris (principal); E78.5 Hyperlipidemia, unspecified; J45.909 Unspecified asthma, uncomplicated
CPT/HCPCS: 36415; 80053; 80061; 85025